=== PATIENT | male | born 1965 | race Caucasian/White ===

== ENCOUNTER 2025-03-24 17:05 | Inpatient (IN) | payer OTHER ==
[~2025-03-24] VITALS: Ht 180.3 cm; Wt 74.8 kg
[2025-03-24 17:35] VITALS: BP 116/68
[2025-03-24] MEDS ORDERED: SODIUM CHLORIDE 0.9% 1,000 ML IV ONE ×2 (17:45→22:45)
[2025-03-24 18:01] LABS: BASO # 0.1 10*3/uL (0.0-0.1); BASO % 1.6 % (0.0-1.0); EOS # 0.1 10*3/uL (0.0-0.4); EOS % 1.4 % (1.0-4.0); MEAN CELL VOLUME 93.1 fl (80.0-94.0); MEAN CORPUSCULAR HGB 31.0 pg (27.0-31.0); MEAN PLATELET VOLUME 9.6 fl (9.6-12.3); MONO # 0.4 10*3/uL (0.1-1.0); MONO % 8.5 % (3.0-9.0); NEUT # 2.9 10*3/uL (2.3-7.9); NEUT % 58.8 % (47.0-73.0); NUCLEATED RED BLOOD CELL 0.0 % (0.0-0.0); NUCLEATED RED BLOOD CELL 0.0 10*3/uL (0.0-0.0); PLATELET COUNT AUTOMATED 277 10*3/uL (130-400); RED CELL DISTRI WIDTH 14.0 % (0-14.5)
[2025-03-24 18:13] LABS: VENOUS BLOOD GAS O2 SAT 87.7 % (60.0-85.0)
[2025-03-24 18:49] LABS: BUN 7 mg/dl (9-23)
[2025-03-24 18:52] LABS: ETHYL ALCOHOL < 3.0 mg/dl (<3)
[2025-03-24] MEDS ORDERED: diazePAM 10 MG/2 ML SYR IV ONE (19:00)
[2025-03-24] MEDS ORDERED: INSULIN REGULAR, HUMAN 1 UNIT/0.01 ML IV ONE (19:15)
[2025-03-24 19:33] LABS: BILIRUBIN Negative (Negative); BLOOD Negative (Negative); CLARITY Clear (Clear); COLOR Yellow (Yellow); KETONE 1+ (Negative); LEUKO ESTERASE 1+ (Negative); NITRITE Negative (Negative); PH 8.0 (4.5-8.0); SPECIFIC GRAVITY >= 1.030 (1.001-1.030); UROBILINOGEN 0.2 E.U./dl (0.0-1.0)
[2025-03-24 19:40] LABS: URINE AMPHETAMINES Negative (1000ng/ml); URINE BARBITURATES Negative (200ng/ml); URINE BENZODIAZEPINES Positive (200ng/ml); URINE CANNABINOIDS (THC) Negative (50ng/ml); URINE COCAINE Negative (300ng/ml); URINE METHADONE Negative (300ng/ml); URINE OPIATES Negative (300ng/ml); URINE PHENCYCLIDINE Negative (25ng/ml)
[2025-03-24 19:41] LABS: BACTERIA 1+; MUCOUS TRACE; RBC 0-2 rbc/hpf (0-2); WBC 41-50 wbc/hpf (0-5)
[2025-03-24] MEDS ORDERED: MAGNESIUM SULFATE 100 ML IV ONE (21:05)
[2025-03-24] MEDS ORDERED: METHOCARBAMOL 750 MG TAB PO PRN (21:05)
[2025-03-24] MEDS ORDERED: hydrOXYzine 50 MG CAP PO PRN (21:05)
[2025-03-24] MEDS ORDERED: Water, Sterile 10 ML VIAL IV PRN (21:05)
[2025-03-24] MEDS ORDERED: FOLIC ACID 1 MG TAB PO ONE (21:05)
[2025-03-24] MEDS ORDERED: Dicyclomine Hydrochloride 20 MG TAB PO PRN (21:05)
[2025-03-24] MEDS ORDERED: ACETAMINOPHEN 650 MG SUPP R PRN (21:10)
[2025-03-24] MEDS ORDERED: BISACODYL 10 MG SUPP R PRN (21:10)
[2025-03-24] MEDS ORDERED: diazePAM 10 MG/2 ML SYR IV PRN (21:10)
[2025-03-24] MEDS ORDERED: Ondansetron Hydrochloride 4 MG/2 ML VIAL IV PRN (21:10)
[2025-03-24] MEDS ORDERED: BISACODYL 5 MG TAB PO PRN (21:10)
[2025-03-24] MEDS ORDERED: ACETAMINOPHEN 325 MG TAB PO PRN (21:10)
[2025-03-24] MEDS ORDERED: DEXTROSE 50% 25 GM/50 ML VIAL IV PRN (21:20)
[2025-03-24] MEDS ORDERED: INSULIN LISPRO 1 UNIT/0.01 ML SQ SCH (22:00)
[2025-03-25 07:16] LABS: BASO # 0.1 10*3/uL (0.0-0.1); BASO % 1.5 % (0.0-1.0); EOS # 0.1 10*3/uL (0.0-0.4); EOS % 2.9 % (1.0-4.0); MEAN CELL VOLUME 92.9 fl (80.0-94.0); MEAN CORPUSCULAR HGB 30.7 pg (27.0-31.0); MEAN PLATELET VOLUME 9.6 fl (9.6-12.3); MONO # 0.4 10*3/uL (0.1-1.0); MONO % 9.2 % (3.0-9.0); NEUT # 2.5 10*3/uL (2.3-7.9); NEUT % 51.6 % (47.0-73.0); NUCLEATED RED BLOOD CELL 0.0 % (0.0-0.0); NUCLEATED RED BLOOD CELL 0.0 10*3/uL (0.0-0.0); PLATELET COUNT AUTOMATED 228 10*3/uL (130-400); RED CELL DISTRI WIDTH 14.1 % (0-14.5)
[2025-03-25 07:40] LABS: ACT PARTIAL THROMBO TIME 27.6 SECONDS (20.0-32.1)
[2025-03-25 07:42] LABS: VITAMIN D, 25-HYDROXY 17.6 ng/mL (30-100)
[2025-03-25 07:44] LABS: FREE T4 1.02 ng/dl (0.89-1.76); SGPT/ALT 14 U/L (5-49)
[2025-03-25 07:57] LABS: BUN < 5 mg/dl (9-23)
[2025-03-25 08:06] VITALS: BP 134/79
[2025-03-25] MEDS ORDERED: MULTIVITAMIN 1 TAB TAB PO SCH (10:00)
[2025-03-25] MEDS ORDERED: LANTUS100 UNIT/1 SC (10:37)
[2025-03-25] MEDS ORDERED: OMEPRAZOLE40 MG PO (10:37)
[2025-03-25] MEDS ORDERED: NOVOLOG100 UNIT/1 SC (10:38)
[2025-03-25] MEDS ORDERED: LIPITOR20 MG PO (10:39)
[2025-03-25 10:45] VITALS: BP 125/78
[2025-03-25] MEDS ORDERED: Thiamine 100 MG TAB PO ONE (12:15)
[2025-03-25] MEDS ORDERED: CEFDINIR 300 MG CAP PO SCH (12:37)
[2025-03-25 16:00] VITALS: BP 105/66
[2025-03-25 20:00] VITALS: BP 106/56
[2025-03-25] MEDS ORDERED: Insulin Glargine, Recombinan 1 UNIT/0.01 ML SC SCH (22:00)
[2025-03-25] MEDS ORDERED: diazePAM 5 MG TAB PO PRN (22:10)
[2025-03-26] VITALS: BP 112/68
[2025-03-26 06:10] LABS: BUN 8 mg/dl (9-23)
[2025-03-26 06:34] LABS: BASO # 0.0 10*3/uL (0.0-0.1); BASO % 0.7 % (0.0-1.0); EOS # 0.2 10*3/uL (0.0-0.4); EOS % 3.3 % (1.0-4.0); MEAN CELL VOLUME 95.1 fl (80.0-94.0); MEAN CORPUSCULAR HGB 31.4 pg (27.0-31.0); MEAN PLATELET VOLUME 10.5 fl (9.6-12.3); MONO # 0.5 10*3/uL (0.1-1.0); MONO % 7.5 % (3.0-9.0); NEUT # 4.0 10*3/uL (2.3-7.9); NEUT % 64.9 % (47.0-73.0); NUCLEATED RED BLOOD CELL 0.0 % (0.0-0.0); NUCLEATED RED BLOOD CELL 0.0 10*3/uL (0.0-0.0); PLATELET COUNT AUTOMATED 214 10*3/uL (130-400); RED CELL DISTRI WIDTH 14.1 % (0-14.5)
[2025-03-26 08:00] VITALS: BP 103/59
[2025-03-26] MEDS ORDERED: Thiamine 100 MG TAB PO SCH (10:00)
[2025-03-26 12:00] VITALS: BP 95/60
[2025-03-26] MEDS ORDERED: DULOXETINE HCL60 MG PO (15:24)
[2025-03-26] MEDS ORDERED: GRALISE900 MG PO (15:25)
[2025-03-26] MEDS ORDERED: NEURONTIN300 MG PO (15:28)
[2025-03-26 16:00] VITALS: BP 106/72
[2025-03-26] MEDS ORDERED: OMEPRAZOLE 20 MG CAP PO SCH (16:30)
[2025-03-26 20:00] VITALS: BP 95/54
[2025-03-27] VITALS: BP 99/62
[2025-03-27 07:11] LABS: BASO # 0.1 10*3/uL (0.0-0.1); BASO % 0.8 % (0.0-1.0); EOS # 0.3 10*3/uL (0.0-0.4); EOS % 4.6 % (1.0-4.0); MEAN CELL VOLUME 96.5 fl (80.0-94.0); MEAN CORPUSCULAR HGB 30.8 pg (27.0-31.0); MEAN PLATELET VOLUME 10.5 fl (9.6-12.3); MONO # 0.4 10*3/uL (0.1-1.0); MONO % 5.7 % (3.0-9.0); NEUT # 4.0 10*3/uL (2.3-7.9); NEUT % 65.4 % (47.0-73.0); NUCLEATED RED BLOOD CELL 0.0 % (0.0-0.0); NUCLEATED RED BLOOD CELL 0.0 10*3/uL (0.0-0.0); PLATELET COUNT AUTOMATED 188 10*3/uL (130-400); RED CELL DISTRI WIDTH 13.9 % (0-14.5)
[2025-03-27 07:45] LABS: BUN 7 mg/dl (9-23)
[2025-03-27 08:00] VITALS: BP 111/51
[2025-03-27] MEDS ORDERED: ATORVASTATIN CALCIUM 20 MG TAB PO SCH (10:00)
== END 2025-03-27 14:20 | disposition home or self-care (01) | DRG 463 ==
LOC: ED 17:05 → 5E 20:26 → EDHOLD 20:26 → 5E 03-25 07:57
PROVIDERS: Nurse Practitioner Family; Student in an Organized Health Care Education/Training Program; ADMIT Internal Medicine; ATTEND Internal Medicine
DX: N39.0 Urinary tract infection, site not specified (principal); E43 Unspecified severe protein-calorie malnutrition; E11.65 Type 2 diabetes mellitus with hyperglycemia; E87.3 Alkalosis; F17.210 Nicotine dependence, cigarettes, uncomplicated; F10.139 Alcohol abuse with withdrawal, unspecified; E55.9 Vitamin D deficiency, unspecified; E11.42 Type 2 diabetes mellitus with diabetic polyneuropathy; D64.9 Anemia, unspecified; Z88.8 Allergy status to other drugs, medicaments and biological substances; Z91.09 Other allergy status, other than to drugs and biological substances; Z82.3 Family history of stroke; Z68.23 Body mass index [BMI] 23.0-23.9, adult; Z80.42 Family history of malignant neoplasm of prostate; Z71.6 Tobacco abuse counseling; Z79.4 Long term (current) use of insulin; Y90.0 Blood alcohol level of less than 20 mg/100 ml